=== PATIENT | female | born 2000 | race Caucasian/White ===

== ENCOUNTER 2020-09-25 02:48 | Emergency (ER) | payer OTHER ==
[~2020-09-25] VITALS: Ht 162.6 cm; Wt 55.1 kg
[2020-09-25] MEDS ORDERED: REGLAN10 MG (03:00)
[2020-09-25] MEDS ORDERED: BENTYL 10 MG CA10 MG PO (03:01)
[2020-09-25 03:26] LABS: ABSOLUTE NEUTROPHILS 3.9 thou/uL (1.4-8.2); BASOPHILS 0.9 % (0.0-2.0); EOSINOPHILS 0.8 % (0.0-3.0); HEMATOCRIT 36.2 % (37.0-47.0); HEMOGLOBIN 12.2 gm/dL (12.0-15.0); LYMPHOCYTES 28.2 % (24.0-44.0); MCH 27.4 pg (26.0-34.0); MCHC 33.8 g/dL (28.0-37.0); MCV 81.2 fL (80.0-100.0); PLATELET COUNT 272 thou/uL (150-400); POLYS 52.1 % (36.0-66.0); RBC 4.46 mil/uL (4.20-5.00); RDW 20.6 % (10.5-14.5); WBC 7.4 thou/uL (4.0-11.0)
[2020-09-25 03:31] LABS: CALCIUM 8.3 mg/dL (8.5-10.1); CREATININE 0.7 mg/dL (0.6-1.0); POTASSIUM 3.7 mmol/L (3.5-5.1)
[2020-09-25 04:48] LABS: AMP/METHAMP Negative (Negative); BARBITURATES Negative (Negative); BENZODIAZEPINES Negative (Negative); COCAINE Negative (Negative); METHADONE Negative (Negative); OPIATES Negative (Negative); PCP Negative (Negative)
[2020-09-25 06:10] LABS: ANISOCYTOSIS 2+; OVALOCYTES FEW; SCHISTOCYTES OCCASIONAL
[2020-09-25 06:55] VITALS: BP 99/64
== END 2020-09-25 09:37 | disposition home or self-care (01) ==
LOC: ER 02:48
PROVIDERS: Emergency Medicine
DX: F10.129 Alcohol abuse with intoxication, unspecified (principal); R56.9 Unspecified convulsions; Z79.899 Other long term (current) drug therapy; Z91.018 Allergy to other foods; Z88.6 Allergy status to analgesic agent